=== PATIENT | male | born 1955 | race Caucasian/White ===

== ENCOUNTER → 2021-01-17 | Outpatient (CLI) | payer OTHER ==
--- NOTE | 2021-01-17 10:21 | 2DMMODE ---
[facility] [place] [address] 2 D/M-MODE ECHOCARDIOGRAM Name: BENJY DEUTSCH Room #: HERMES CHRISTOPH Andrews#: [id number] Admission: 01/17/21 Attend Phys: NATALIA ANNE Discharge: Date of : 51 Report #: [id number] THIS REPORT FOR: cc: Erasmo Cheek MD, Daniel MD Santiago, Patrick MD [facility] ~ APPROVED REPORT Study performed: 01/17/2021 09:51:11 EXAM: Comprehensive 2D, Doppler, and color-flow Echocardiogram Patient Location: Out-Patient Status: routine BSA: 2.19 HR: 88 bpm Rhythm: NSR Other Information Study Quality: Good Indications Murmur Dyspnea Chest Pain 2D Dimensions IVSd: 14.77 (7-11mm) LVOT Diam: 21.84 (18-24mm) LVDd: 45.02 mm PWd: 10.80 (7-11mm) Ascending Ao: 37.05 (22-36mm) LVDs: 32.89 (25-40mm) Left Atrium: 36.40 (27-40mm) Aortic Root: 33.17 mm Volumes Left Atrial Volume (Systole) Single Plane 4CH: 51.99 mL Single Plane 2CH: 45.39 mL LA ESV Index: 24.00 mL/m2 Aortic Valve AoV Peak Alexis.: 2.55 m/s AO Peak Gr.: 26.05 mmHg LVOT Max P.36 mmHg AO Mean Gr.: 16.80 mmHg [facility] [address] [place] [address] 2 D/M-MODE ECHOCARDIOGRAM Name: BENJY DEUTSCH Room #: REG Juliana#: [id number] Admission: 01/17/21 Attend Phys: NATALIA FRAIRE Discharge: Date of : 51 Report #: [id number] AO V2 Mean: 1.97 m/s LVOT Max V: 1.04 m/s AO V2 VTI: 49.49 cm LINDA Vmax: 1.53 cm2 Mitral Valve E/A Ratio: 0.8 MV Decel. Time: 271.79 ms MV E Max Alexis.: 0.77 m/s MV A Alexis.: 1.00 m/s MV PHT: 78.82 ms IVRT: 100.35 ms Pulmonary Valve PV Peak Alexis.: 0.99 m/s PV Peak Gr.: 3.92 mmHg Pulmonary Vein P Vein S: 0.66 m/s P Vein A: 0.30 m/s P Vein D: 0.44 m/s P Vein A Dur.: 103.8 msec P Vein S/D Ratio: 1.50 Tricuspid Valve TR Peak Alexis.: 2.00 m/s RAP Estimate: 5.00 mmHg TR Peak Gr.: 16.00 mmHg PA Pressure: 21.00 mmHg Left Ventricle The left ventricle is normal size. Moderate septal hypertrophy is present. Left ventricular systolic function is normal. LVEF is 60%. Mild diastolic dysfunction is present (impaired relaxation pattern). Right Ventricle The right ventricle is normal size. The right ventricular systolic function is normal. Atria The left atrium size is normal. The right atrium size is normal. Aortic Valve Aortic valve is moderately calcified. Mild aortic regurgitation. There is mild valvular aortic stenosis. Calculated aortic valve area is 1.5 cm2 with maximum pressure gradient of 26 mmHg and mean pressure gradient of 17 mmHg. Mitral Valve [facility] [place] [address] 2 D/M-MODE ECHOCARDIOGRAM Name: BENJY DEUTSCH Room #: REG Juliana#: [id number] Admission: 01/17/21 Attend Phys: NATALIA FRAIRE Discharge: Date of : 51 Report #: [id number] The mitral valve is normal in structure. Mild mitral regurgitation. Tricuspid Valve The tricuspid valve is normal in structure. Trace tricuspid regurgitation. Estimted PAP is 24mmHg. Pulmonic Valve The pulmonary valve is normal in structure. There is no pulmonic valvular regurgitation. Great Vessels The aortic root is normal in size. The ascending aorta is normal in size. IVC is normal in size and collapses >50% with inspiration. Pericardium There is no pericardial effusion. <Conclusion> Normal left ventricle size with moderate septal hypertrophy Ejection fraction 60% Normal right ventricular size/function Normal atrial size Mild aortic valve calcification Mild aortic valve stenosis aortic valve area estimate 1.5 cm and a mean gradient of 17 mmHg Mild mitral valve insufficiency Trace tricuspid valve insufficiency Pulmonary systolic pressure estimated at 26 mmHg No pericardial effusion Normal aortic root size. <ELECTRONICALLY SIGNED> By: Higinio Taylor MD, FACC 01/17/21 1021 1021 1021 Higinio Taylor MD, FACC /INF
== END ==
LOC: CV 09:19
PROVIDERS: ATTEND Nurse Practitioner Family
DX: I08.0 Rheumatic disorders of both mitral and aortic valves (principal); R06.00 Dyspnea, unspecified